=== PATIENT | female | born 1965 | race Two or more races ===

== ENCOUNTER 2018-11-22 22:59 | Inpatient (IN) | payer SELFPAY ==
[~2018-11-22] VITALS: Ht 152.4 cm; Wt 49.2 kg
[2018-11-22 23:44] LABS: Hemoglobin 7.6 g/dL (12.2-16.2); Nucleated Red Blood Cells % 0.1 %; Red Cell Distribution Width 19.3 % (11.8-14.3); White Blood Cell 4.1 10^3/uL (4.4-10.8)
[2018-11-22] MEDS ORDERED: DEXTROSE (50%) 50ML SYRG IV ONE (23:45)
[2018-11-22 23:47] LABS: Basophils # (auto) 0 uL; Eosinophils # (auto) 0 uL; Eosinophils % (auto) 0.7 % (0.0-7.0); Hematocrit 25.5 % (36.0-46.0); Lymphocytes # (auto) 0.8 uL; Lymphocytes % (auto) 20.1 % (10.0-50.0); Mean Corpuscular Hgb Conc. 29.7 g/dL (32.0-36.0); Mean Corpuscular Volume 74.1 fL (80.0-100.0); Monocytes # (auto) 0.3 uL; Monocytes % (auto) 8.6 % (0.0-12.0); Neutrophils # (auto) 2.8 uL; Neutrophils % (auto) 69.6 % (37.0-80.0); Platelet Count (auto) 364 10^3/uL (140-450); Red Blood Cells 3.44 10^6/uL (4.0-5.20)
[2018-11-23 00:03] LABS: Alanine Aminotransferase 17 U/L (13-56); Albumin 2.9 g/dL (3.4-5.0); Amylase 192 U/L (25-115); Anion Gap 11 (5-15); Aspartate Aminotransferase 17 U/L (15-37); BUN/Creatinine Ratio 36.4; Blood Urea Nitrogen 28 mg/dL (7-18); Calcium 8.4 mg/dL (8.5-10.1); Carbon Dioxide 21 mmol/L (21-32); Chloride 109 mmol/L (98-107); GFR African American 102 mL/min; GFR Non-African American 84 mL/min; Glucose 62 mg/dL (74-106); Lipase 197 U/L (73-393); Potassium 3.4 mmol/L (3.5-5.1); Sodium 141 mmol/L (136-145)
[2018-11-23 00:08] LABS: Alkaline Phosphatase 77 U/L (45-117); Bilirubin, Total 0.2 mg/dL (0.2-1.0); Total Protein 8.4 g/dL (6.4-8.2)
[2018-11-23] MEDS ORDERED: FAMOTIDINE (10MG/ML) 2ML VL IV ONE (03:15)
[2018-11-23] MEDS: SODIUM CHLORIDE 0.9% 1,000 ML IV SCH ×2 (03:27→16:35)
[2018-11-23] MEDS ORDERED: SODIUM CHLORIDE 0.9% 1,500 ML IV ONE (04:15)
[2018-11-23] MEDS ORDERED: PIPERACILLIN-TAZOB 3.375GM 100 ML IV ONE (04:15)
[2018-11-23] MEDS ORDERED: VANCOMYCIN 1GM/250ML 250 ML IV ONE (04:15)
[2018-11-23] MEDS ORDERED: MORPHINE SULF INJ 2 MG/ML SYRINGE 1ML IV PRN (06:15)
[2018-11-23] MEDS ORDERED: SODIUM CHLORIDE 0.9% 1,000 ML IV SCH (06:15)
[2018-11-23] MEDS ORDERED: ACETAMINOPHEN 500 MG TAB PO PRN (06:15)
[2018-11-23 06:34] LABS: Lactic Acid w/Reflex 2.5 mmol/L (0.4-2.0)
[2018-11-23 06:59] LABS: Basophils # (auto) 0 uL; Eosinophils # (auto) 0 uL; Hematocrit 19.6 % (36.0-46.0); Lymphocytes # (auto) 0.6 uL; Mean Corpuscular Volume 74.8 fL (80.0-100.0); Monocytes # (auto) 0.4 uL; Red Blood Cells 2.62 10^6/uL (4.0-5.20); White Blood Cell 3.8 10^3/uL (4.4-10.8)
[2018-11-23 07:01] LABS: Basophils % (auto) 0.4 % (0.0-2.0); Eosinophils % (auto) 0.3 % (0.0-7.0); Lymphocytes % (auto) 16.8 % (10.0-50.0); Mean Corpuscular Hgb Conc. 29.4 g/dL (32.0-36.0); Monocytes % (auto) 9.8 % (0.0-12.0); Neutrophils # (auto) 2.8 uL; Neutrophils % (auto) 72.7 % (37.0-80.0); Nucleated Red Blood Cells % 0.1 %; Platelet Count (auto) 278 10^3/uL (140-450); Red Cell Distribution Width 19.4 % (11.8-14.3)
[2018-11-23 07:04] LABS: Hemoglobin 5.8 g/dL (12.2-16.2)
[2018-11-23 07:16] LABS: BUN/Creatinine Ratio 41.3; Calcium 7.5 mg/dL (8.5-10.1)
[2018-11-23] MEDS ORDERED: GASTROGRAFIN 120 ML SOL ONE (07:18)
[2018-11-23] MEDS: ACCU-CHEK COMFORT CURVE STRIP VI SCH ×4 (08:16→20:00)
[2018-11-23] MEDS: ONDANSETRON HCL 4 MG/2 ML VIAL IV PRN ×2 (08:43→22:12)
[2018-11-23] MEDS ORDERED: FAMOTIDINE (10MG/ML) 2ML VL IV SCH (10:00)
[2018-11-23 10:13] VITALS: BP 113/60
--- NOTE | 2018-11-23 10:13 | NUR ---
Telemetry admit from ER MARLENY MCCORD admitted to Telemetry unit after SBAR received. Patient oriented to Mora Ochoa, primary RN, unit, room, bed, and unit policies regarding patient care and visiting hours. Patient now on continuous telemetry monitoring, tele box #9 and telemetry reading on arrival to unit is SR. Patient placed on bedside oxygen, weighed by bedscale and encouraged to call if they need something. All questions and concerns addressed, patient verbalized understanding.
--- NOTE | 2018-11-23 11:30 | NUR ---
Paged for Dr. Lion, regarding patient's hemoglobin level. Xena from lab notified me that multiple antibodies identified during type and screen. Awaiting call back.
[2018-11-23] MEDS: DEXTROSE (50%) 50ML SYRG IV PRN ×2 (12:04→16:40)
--- NOTE | 2018-11-23 12:20 | NUR ---
Patients blood sugar is 37, administered 50ml dextrose IV. Paged Dr. Lion. Awaiting call back
[2018-11-23 13:00] VITALS: BP 108/66
[2018-11-23] MEDS: FAMOTIDINE (10MG/ML) 2ML VL IV SCH ×2 (14:13→22:11)
[2018-11-23] MEDS: metroNIDAZOLE 500MG/100ML 100 ML IV SCH ×2 (14:13→22:11)
--- NOTE | 2018-11-23 16:00 | NUR ---
Dr. Velasquez aware of patient's hemoglobin level and blood screening status.
--- NOTE | 2018-11-23 16:14 | NUR ---
Patients blood sugar is 20, aox4, no s/s of distress noted/stated. Gave her 2 [place] juice boxes. Will recheck in 15 minutes. Family at bedside.
--- NOTE | 2018-11-23 16:19 | NUR ---
MRSA swab: collected MRSA swab of R/L nares, sent to lab via [facility] system.
--- NOTE | 2018-11-23 16:31 | NUR ---
Re-checked blood sugar, 33, administered 50ml dextrose IV. Patient tolerate well. Will continue to monitor. Family at bedside. Ruddy ESCAMILLA.
[2018-11-23 17:00] VITALS: BP 93/60
--- NOTE | 2018-11-23 18:00 | NUR ---
Patient's blood sugar is 124, no s/s of distress/noted/stated. Will continue care.
--- NOTE | 2018-11-23 18:47 | NUR ---
closing note Patient is comfortably sitting up in bed. Patient tolerated clear liquid diet well, no c/o N/V. No c/o pain. Bed at lowest position and call light within reach.
[2018-11-23 20:00] VITALS: BP 104/67
--- NOTE | 2018-11-23 20:00 | NUR ---
NUPUR DEVINE 69 PROVIDED PATIENT WITH 8 OZ ORANGE JUICE.
--- NOTE | 2018-11-23 20:15 | NUR ---
AFIA ESCAMILLA AT BEDSIDE
[2018-11-23] MEDS: SOD CHL 0.45% WITH 20MEQ KCL 1,000 ML IV SCH (20:30)
[2018-11-23 21:20] LABS: Hematocrit 22.4 % (36.0-46.0)
[2018-11-23 21:32] LABS: BUN/Creatinine Ratio 33.3; Calcium 8.1 mg/dL (8.5-10.1); Hemoglobin 6.7 g/dL (12.2-16.2); Potassium 3.1 mmol/L (3.5-5.1)
--- NOTE | 2018-11-23 21:32 | NUR ---
UPDATE ON AWAITING BLOOD UNITS DESTINEY ROBERTS FROM LAB CALLED TO UPDATE THAT WE ARE STILL WAITING FOR COMPATIBLE BLOOD UNITS FOR PATIENT. STATED THAT PATIENT CURRENT Hgb IS 6.7
[2018-11-23 22:00] VITALS: BP 104/67
[2018-11-24] VITALS (13 sets, daily range): BP systolic 100–134; BP diastolic 59–74
[2018-11-24] MEDS: ACCU-CHEK COMFORT CURVE STRIP VI SCH ×6 (00:18→20:00)
--- NOTE | 2018-11-24 01:40 | NUR ---
RECEIVED CALL FROM LAB THAT [facility] ARE READY AT BLOOD BANK. WILL PREPARE PATIENT FOR TRANSFUSION.
--- NOTE | 2018-11-24 02:30 | NUR ---
BLOOD TRANSFUSION PAMPHLET PROVIDED TO PATIENT PER HOSPITAL POLICY.
--- NOTE | 2018-11-24 02:32 | NUR ---
FIRST UNIT OF [facility] TRANSFUSING. PATIENT TOLERATING WELL. NO S/SX OF DISTRESS, SOB, PAIN OR ADVERSE REACTION NOTED. PATIENT COMFORTABLE IN BED. VS WITHIN NORMAL LIMITS AND RECORDED UNDER TRANSFUSION TAB. RN AT BEDSIDE.
--- NOTE | 2018-11-24 04:00 | NUR ---
LOW BLOOD SUGAR. ORANGE JUICE GIVEN TO PATIENT.
--- NOTE | 2018-11-24 04:25 | NUR ---
LOW BLOOD SUGAR OF LESS THAN 10 PER ACCU CHECK. PATIENT IS ASSYMPTOMATIC, ANSWERS IN COMPLETE SENTENCES, DENIES DIZZINESS OR BLURRED VISION. PATIENT STATES THAT SHE IS ABLE TO RECOGNIZE LOW BLOOD SUGARS AND THAT SHE DOES NOT FEEL THE SYMPTOMS. RECHECKED WITH A DIFFERENT DEVICE TO COMPARE VALUE, BLOOD SUGAR IS 13.
--- NOTE | 2018-11-24 04:25 | NUR ---
BLOOD SUGAR ACCU CHECK READ LESS THAN 10, WILL ADMINISTER DEXTROSE PER MD ORDERS.
[2018-11-24] MEDS: DEXTROSE (50%) 50ML SYRG IV PRN ×3 (04:39→17:14)
--- NOTE | 2018-11-24 05:00 | NUR ---
BLOOD SUGAR RE CHECK IS 69.
[2018-11-24] MEDS: metroNIDAZOLE 500MG/100ML 100 ML IV SCH ×3 (05:46→21:24)
[2018-11-24] MEDS: SODIUM CHLORIDE 0.9% 1,000 ML IV SCH (05:55)
--- NOTE | 2018-11-24 05:57 | NUR ---
UNSUCCESSFUL IV ACCESS AFTER 6 ATTEMPTS BY 3 RNs. WILL ENDORSE TO DAY SHIFT NURSE PATIENT IS MIDLINE CANDIDATE. PATIENT AWAITING TRANSFUSION OF 2ND UNIT OF [facility]; WILL ENDORSE TRANSFUSION TO DAY SHIFT NURSE. CURRENT IV ACCESS IS WEAK FOR BLOOD TRANSFUSION.
--- NOTE | 2018-11-24 07:30 | NUR ---
ENDORSED PATIENT CARE TO DAY SHIFT NURSE NETTA HOWELL. PATIENT IN BED RESTING COMFORTABLY. NO S/SX OF DISTRESS, SOB OR PAIN. DANTE IS AWARE THAT PATIENT IS PENDING TRANSFUSION OF 2ND UNIT, AND RECOMMENDED MIDLINE INSERTION.
--- NOTE | 2018-11-24 08:16 | NUR ---
Low blood sugar of less than 10. Patient is aox4, no c/o dizziness. Rechecked blood sugar , same reading less than 10. Advised patient to drink orange juice and administered 50ml of dextrose IV. Will continue to monitor. Hospitalist deidra. Addendum: 11/24/18 at 0824 by Mora Ochoa RN STEFFEN Alex ordered a serum check and a capillary check at the same time for patient. Orders read back and verified.
--- NOTE | 2018-11-24 09:26 | NUR ---
blood sugar check 110. Addendum: 11/24/18 at 0935 by Mora Ochoa RN Blood sugar check right after glucose serum check . 140.
[2018-11-24] MEDS: SOD CHL 0.45% WITH 20MEQ KCL 1,000 ML IV SCH (09:50)
[2018-11-24] MEDS: FAMOTIDINE (10MG/ML) 2ML VL IV SCH (10:38)
[2018-11-24] MEDS: cefTRIAXone 1GM/50ML D5W 50 ML IV SCH (10:38)
--- NOTE | 2018-11-24 12:02 | NUR ---
Midline insertion. 3Fr 20cm Midline IV inserted into the right basilic vein. Good blood return. Flushes easily with NS. Stat-Lock, Bio-Patch and clear sterile dressing applied. Nurse notified. Lot#: [id number].
--- NOTE | 2018-11-24 12:30 | NUR ---
BLOOD GLUCOSE CHECK 63. PATIENT IS SITTING UP IN BED EATING LUNCH. WILL CONTINUE TO MONITOR.
[2018-11-24] MEDS: ONDANSETRON HCL 4 MG/2 ML VIAL IV PRN (14:26)
--- NOTE | 2018-11-24 15:09 | NUR ---
Blood transfusion started. Patient sitting up in bed with no s/s of distress noted/stated. VS: T 98.2, BP 102/63, HR 68, Spo2 98%, rr 18. Will continue to monitor.
--- NOTE | 2018-11-24 16:20 | NUR ---
BLOOD GLUCOSE CHECK 58, PATIENT ASYMPTOMATIC, GAVE PATIENT 2 ORANGE JUICE BOXES WITH 3 PACKS OF SUGAR. WILL RECHECK.
[2018-11-24] MEDS: D5W/ SOD CHL 0.9%/KCL 20MEQ 1,000 ML IV SCH (16:45)
--- NOTE | 2018-11-24 17:00 | NUR ---
RE-CHECKED BLOOD GLUCOSE, 57, PATIENT ASYMPTOMATIC. WILL ADMINISTER IV DEXTROSE. WILL CONTINUE TO MONITOR.
--- NOTE | 2018-11-24 17:15 | NUR ---
ADMINISTERED IV DEXTROSE. PATIENT TOLERATED WELL. WILL CONTINUE TO MONITOR.
--- NOTE | 2018-11-24 17:30 | NUR ---
%IV removal Patient c/o pain 3/10 at IV site. Left arm swollen.Applied cool pack and levated arm. IV DC'd with clean sterile technique, catheter fully intact. Pressure dressing applied to site. Patient tolerated well. Will continue to monitor.
--- NOTE | 2018-11-24 17:39 | NUR ---
Blood transfusion ended, patient tolerated well. No s/s of distress stated. VS: BP 134/69, HR 75, SPO2 100%, T 98.0. Will continue to monitor.
--- NOTE | 2018-11-24 19:40 | NUR ---
PATIENT HAD AN ACCIDENT. UNABLE TO COLLECT STOOL SAMPLE AT THIS TIME, MIXED WITH URINE. KEPT PATIENT CLEAN AND DRY. CHANGED UNDERPADS, SHEETS AND GOWN. CONTINUE PATIENT CARE.
[2018-11-24 20:37] LABS: Hematocrit 25.9 % (36.0-46.0); Hemoglobin 7.8 g/dL (12.2-16.2)
[2018-11-24 20:49] LABS: INR 1.23 (0.9-1.15); Partial Thromboplastin Time 28.5 sec (23.64-32.05)
[2018-11-24] MEDS: PANTOPRAZOLE 40 MG TAB PO SCH (21:25)
--- NOTE | 2018-11-24 23:10 | NUR ---
PATIENT SOAKED WITH URINE AND HAD ANOTHER BM, KEPT CLEAN AND DRY. CHANGED LINENS, SHEETS AND UNDERPADS. CONTINUE PATIENT CARE.
[2018-11-25] MEDS: ACCU-CHEK COMFORT CURVE STRIP VI SCH ×7 (00:02→23:51)
--- NOTE | 2018-11-25 00:02 | NUR ---
PATIENT'S BLOOD SUGAR IS 68 MG/DL. 2 BOXES OF ORANGE JUICE WITH 6 PACKS OF SUGAR GIVEN. PATIENT TOLERATED WELL. CONTINUE PATIENT CARE.
[2018-11-25 00:37] LABS: Hematocrit 23.8 % (36.0-46.0)
[2018-11-25 00:38] LABS: Hemoglobin 7.5 g/dL (12.2-16.2)
--- NOTE | 2018-11-25 04:10 | NUR ---
TRUONG HOSPITALIST PATIENT'S BP IS 90/56 HR 74 AND LAST BS WAS 78 AND PATIENT IS ALREADY RUNNING D5 0.9% NS WITH 20 MEQ KCL AT 75ML/HR AND PATIENT IS NPO. AWAITING CALLBACK.
--- NOTE | 2018-11-25 04:24 | NUR ---
COLLECTED UA SAMPLE. SENT TO LAB
[2018-11-25 04:30] VITALS: BP 90/56
[2018-11-25 04:56] LABS: Urine Bacteria FEW /hpf (None Seen); Urine Blood Negative /uL (Negative); Urine Specific Gravity 1.005 (1.001-1.035); Urine WBC 1 /hpf (0 - 5)
--- NOTE | 2018-11-25 06:00 | NUR ---
PATIENT'S BS WENT DOWN TO 44 MG/DL AND RECHECK IS 53 MG/DL. PATIENT AWAKE ALERT AND ORIENTED X4. PATIENT IS NPO AT THIS TIME, D50 GIVEN PER MD ORDER. TOLERATED WELL.
[2018-11-25] MEDS: D5W/ SOD CHL 0.9%/KCL 20MEQ 1,000 ML IV SCH ×2 (06:31→21:59)
[2018-11-25] MEDS: metroNIDAZOLE 500MG/100ML 100 ML IV SCH ×2 (06:31→14:27)
[2018-11-25] MEDS: DEXTROSE (50%) 50ML SYRG IV PRN ×2 (06:32→11:20)
--- NOTE | 2018-11-25 06:49 | NUR ---
HOSPITALIST ARLENE GORDON/POSITION CLASSIFICATION SPECIALIST CALLED BACK MADE AWARE OF DROP ON BLOOD SUGAR AND BP AND INTERVENTION DONE. NO NEW ORDERS MADE, INSTRUCTED TO HAVE MORNING SHIFT HOSPITALIST AWARE. CONTINUE PATIENT CARE.
[2018-11-25 07:10] LABS: Hematocrit 24.4 % (36.0-46.0); Hemoglobin 7.6 g/dL (12.2-16.2)
[2018-11-25 07:21] LABS: BUN/Creatinine Ratio 18.4; Calcium 7.5 mg/dL (8.5-10.1); Potassium 3.1 mmol/L (3.5-5.1)
--- NOTE | 2018-11-25 08:00 | NUR ---
Opening Shift Note Assumed care of patient, awake and alert. No S/S of distress/SOB or pain. ACUCCHECK-84. Instructed on POC and to call for assist PRN, will continue to monitor for changes Q1hr and PRN.
[2018-11-25 08:53] VITALS: BP 95/61
[2018-11-25] MEDS: cefTRIAXone 1GM/50ML D5W 50 ML IV SCH (09:27)
[2018-11-25] MEDS: PANTOPRAZOLE 40 MG TAB PO SCH ×2 (10:00→21:59)
[2018-11-25] MEDS ORDERED: MIDAZOLAM HCL 5 MG/ML-1ML VIAL ONE (11:00)
[2018-11-25] MEDS ORDERED: LIDOCAINE VISCOUS 2% 15ML UD ONE (11:00)
[2018-11-25] MEDS ORDERED: SODIUM CHLORIDE LOCK 10 ML ONE (11:00)
[2018-11-25] MEDS ORDERED: fentaNYL CITRATE 100 MCG/2 ML VL ONE (11:00)
[2018-11-25] MEDS ORDERED: diphenhdrAMINE HCL 50 MG/1 ML VL ONE (11:01)
[2018-11-25] MEDS ORDERED: NALOXONE HCL 0.4 MG/ML VIAL ONE (11:18)
[2018-11-25] MEDS ORDERED: FLUMAZENIL 0.1 MG/ML INJ 10ML MDV IV ONE (11:18)
--- NOTE | 2018-11-25 12:15 | NUR ---
Patient brought to Pre-op via bed for EGD. Gave reports to Usha CHADWICK.
[2018-11-25 13:14] VITALS: BP 91/52
--- NOTE | 2018-11-25 14:00 | NUR ---
Received reports from OFFICE SUPPORT CLERK. Patient back to her room S/P EGD performed by Dr. Chase. Patient is alert and oriented, not in respiratory distress. Bed alarm on and side rails up x2.
[2018-11-25 17:15] VITALS: BP 96/57
[2018-11-25 21:42] VITALS: BP 97/59
--- NOTE | 2018-11-25 23:40 | NUR ---
PATIENT HAD BOWEL MOVEMENT, SENT STOOL SAMPLE TO LAB. PATIENT'S BP IS STILL MUCOIDY IN CONSISTENCY, UNABLE TO TEST FOR CDIFF SINCE PATIENT HAD GASTROGRAFFIN LESS THAN 48 HOURS AGO. CONTINUE PATIENT CARE.
[2018-11-26 00:15] LABS: Alcohol, Urine < 3.0 mg/dL (0-5); Amphetamine Screen, Urine NEGATIVE (NEGATIVE); Barbiturate Scree,Urine NEGATIVE (NEGATIVE); Benzodiazephine Screen, Urine POSITIVE (NEGATIVE); Cannabinoid Screen, Urine NEGATIVE (NEGATIVE); Cocaine Screen, Urine NEGATIVE (NEGATIVE); Opiate Scree,Urine NEGATIVE (NEGATIVE); Phencyclidine Screen, Urine NEGATIVE (NEGATIVE)
[2018-11-26] MEDS: ACCU-CHEK COMFORT CURVE STRIP VI SCH ×6 (04:05→23:30)
[2018-11-26 06:05] VITALS: BP 106/67
[2018-11-26 07:02] LABS: Basophils # (auto) 0 uL; Eosinophils # (auto) 0.2 uL; Hemoglobin 7.1 g/dL (12.2-16.2); Lymphocytes # (auto) 0.5 uL; Monocytes # (auto) 0.4 uL
[2018-11-26 07:04] LABS: Basophils % (auto) 0.6 % (0.0-2.0); Eosinophils % (auto) 5.8 % (0.0-7.0); Hematocrit 23.1 % (36.0-46.0); Lymphocytes % (auto) 19.6 % (10.0-50.0); Mean Corpuscular Hemoglobin 23.6 pg (28.0-32.0); Mean Corpuscular Hgb Conc. 30.7 g/dL (32.0-36.0); Monocytes % (auto) 15.7 % (0.0-12.0); Neutrophils # (auto) 1.6 uL; Neutrophils % (auto) 58.3 % (37.0-80.0); Nucleated Red Blood Cells % 0.3 %; Platelet Count (auto) 223 10^3/uL (140-450); Red Blood Cells 3.01 10^6/uL (4.0-5.20); White Blood Cell 2.7 10^3/uL (4.4-10.8)
[2018-11-26 07:11] LABS: Potassium 3.7 mmol/L (3.5-5.1)
[2018-11-26 07:17] LABS: Albumin 1.9 g/dL (3.4-5.0); BUN/Creatinine Ratio 17.8; Calcium 7.3 mg/dL (8.5-10.1)
[2018-11-26 07:19] LABS: Red Cell Distribution Width 20.1 % (11.8-14.3)
[2018-11-26 07:20] LABS: Bilirubin, Total 0.3 mg/dL (0.2-1.0); Total Protein 5.3 g/dL (6.4-8.2)
--- NOTE | 2018-11-26 08:00 | NUR ---
Opening Shift Note Assumed care of patient, awake and alert. No S/S of distress/SOB or pain. Instructed on POC and to call for assist PRN, will continue to monitor for changes Q1hr and PRN.
[2018-11-26 08:29] VITALS: BP 102/65
[2018-11-26] MEDS: PANTOPRAZOLE 40 MG TAB PO SCH ×2 (09:51→23:24)
[2018-11-26] MEDS: D5W/ SOD CHL 0.9%/KCL 20MEQ 1,000 ML IV SCH ×2 (10:23→22:05)
[2018-11-26 13:12] VITALS: BP 99/64
[2018-11-26] MEDS ORDERED: PANT40T PO (13:44)
[2018-11-26] MEDS ORDERED: MORPHINE SULF INJ 2 MG/ML SYRINGE 1ML IV PRN (13:45)
[2018-11-26] MEDS: predniSONE 20 MG TAB PO SCH ×2 (15:07→23:24)
[2018-11-26] MEDS ORDERED: IOHEXOL 300 MG/ML 100ML BOTTLE IJ ONE (16:21)
[2018-11-26 16:53] VITALS: BP 101/61
--- NOTE | 2018-11-26 17:20 | NUR ---
Accucheck-53, orange juice given.
--- NOTE | 2018-11-26 19:10 | NUR ---
Opening Shift Note Assumed care of patient from day shift NETTA Pelaez. Pt is awake and alert and oriented x4. No S/S of distress/SOB or pain. Safety maintained with bed rails upx2, locked and in lowest position with call bro within reach. Instructed on POC and to call for assist PRN, will continue to monitor for changes Q1hr and PRN.
[2018-11-26 22:00] VITALS: BP 102/65
[2018-11-27] MEDS: D5W/ SOD CHL 0.9%/KCL 20MEQ 1,000 ML IV SCH (00:41)
[2018-11-27] MEDS: ACCU-CHEK COMFORT CURVE STRIP VI SCH ×4 (04:23→16:36)
[2018-11-27 05:00] VITALS: BP 128/77
[2018-11-27] MEDS: predniSONE 20 MG TAB PO SCH ×2 (05:29→16:36)
--- NOTE | 2018-11-27 07:24 | NUR ---
Closing Shift Note Endorsed care to day shift RN Summer. Pt resting in bed, no s/s distress.
--- NOTE | 2018-11-27 07:29 | NUR ---
Opening Note Received report from scientific programmer analyst RN. Patient is awake, alert and oriented x4. No signs or symptoms of distress noted at this time. Patient is on room air, respirations even and unlabored. Patient denies pain at this time. Reviewed plan of care with patient, patient verbalized understanding. Bed in low and locked position,call light within reach. Will continue to monitor Q1 hour and PRN.
[2018-11-27 09:00] VITALS: BP 116/75
[2018-11-27] MEDS: PANTOPRAZOLE 40 MG TAB PO SCH (09:16)
[2018-11-27 12:32] LABS: Basophils # (auto) 0 uL; Eosinophils # (auto) 0 uL; Monocytes # (auto) 0.1 uL; Neutrophils # (auto) 1.8 uL; Red Blood Cells 3.22 10^6/uL (4.0-5.20); White Blood Cell 2.2 10^3/uL (4.4-10.8)
[2018-11-27 12:35] LABS: Eosinophils % (auto) 0.1 % (0.0-7.0); Hematocrit 24.7 % (36.0-46.0); Hemoglobin 7.7 g/dL (12.2-16.2); Lymphocytes # (auto) 0.4 uL; Lymphocytes % (auto) 15.9 % (10.0-50.0); Mean Corpuscular Hemoglobin 24.1 pg (28.0-32.0); Mean Corpuscular Hgb Conc. 31.4 g/dL (32.0-36.0); Mean Corpuscular Volume 76.8 fL (80.0-100.0); Monocytes % (auto) 2.7 % (0.0-12.0); Neutrophils % (auto) 81.3 % (37.0-80.0); Nucleated Red Blood Cells % 0.2 %; Platelet Count (auto) 265 10^3/uL (140-450)
[2018-11-27 12:58] LABS: Red Cell Distribution Width 20.8 % (11.8-14.3)
[2018-11-27 13:00] VITALS: BP 122/80
--- NOTE | 2018-11-27 13:05 | NUR ---
Family at bedside
[2018-11-27 15:47] VITALS: BP 122/80
[2018-11-27 16:37] VITALS: BP 122/80
--- NOTE | 2018-11-27 17:30 | NUR ---
DISCHARGE Discharge instructions given as ordered. Encourage to follow up with primary care physician as instructed. Patient provided with voucher for [facility]. Patient also provided with information for [facility] and [facility]. All questions and concerns addressed. Patient and family verbalized understanding. IV removed with catheter intact, pressure dressing applied. Patient taken to vehicle via wheelchair with all personal belongings, accompanied by staff and family member. No distress noted at time of departure.
== END 2018-11-27 19:15 | disposition home or self-care (01) | DRG 389 ==
LOC: ER 23:01 → OVERFLOW 11-23 04:13 → TELE-EAST 11-23 10:37 → EAST 11-26 14:14
PROVIDERS: ADMIT Nurse Practitioner Family; ATTEND Internal Medicine
PROC: 30233N1 Transfusion of Nonautologous Red Blood Cells into Peripheral Vein, Percutaneous Approach (ICD-10-PCS; 2018-11-24)
PROC: 0DJ08ZZ Inspection of Upper Intestinal Tract, Via Natural or Artificial Opening Endoscopic (ICD-10-PCS; principal; 2018-11-25 12:25)
DX: K56.609 Unspecified intestinal obstruction, unspecified as to partial versus complete obstruction (principal); K55.9 Vascular disorder of intestine, unspecified; E44.0 Moderate protein-calorie malnutrition; D58.9 Hereditary hemolytic anemia, unspecified; K56.7 Ileus, unspecified; E87.6 Hypokalemia; D64.9 Anemia, unspecified; E11.649 Type 2 diabetes mellitus with hypoglycemia without coma; I10 Essential (primary) hypertension; D50.9 Iron deficiency anemia, unspecified; K20.9 Esophagitis, unspecified; K63.89 Other specified diseases of intestine; Z68.21 Body mass index [BMI] 21.0-21.9, adult
CPT/HCPCS: 36415; 71045; 74176; 74177; 74250; 80048; 80053; 80307; 81001; 81025; 82150; 82270; 82947; 82962; 83010; 83036; 83605; 83615; 83690; 84155; 84165; 84484; 85014; 85018; 85025; 85045; 85610; 85730; 86256; 86850; 86860; 86870; 86880; 86885; 86900; 86901; 86905; 86906; 86920; 86922; 86970; 86971; 87040; 87081; 93005; 96361; 96374; 96375; G0378; J0696; J2250; J2405; J2543; J3490